=== PATIENT | female | born 1945 | race Caucasian/White ===

== ENCOUNTER 2016-10-09 14:40 | Emergency (ER) | payer OTHER ==
[~2016-10-09] VITALS: Ht 157.5 cm; Wt 84.9 kg
[~2016-10-09 14:40] MED LIST: BACLOFEN10 MG PO; DYAZIDE, MA1 CAPSULE PO; GABAPENTIN100 MG PO; LORTAB 5-325 M1 EACH PO; METAXALONE800 MG PO; METFORMIN HCL1000 MG PO; MOTRIN600 MG PO; PRAVASTATIN SOD40 MG PO; TRIAMTERENE-HC1 EACH PO
[2016-10-09 16:00] LABS: HEMATOCRIT 38.6 % (36.0-46.0); MCH 27.8 PG (29.0-34.0); MCHC 32.6 G/DL (30.0-36.0); MCV 85.2 FL (83-99); MEAN PLAT.VOLUME 8.9 uM^3 (9.5-12.4); PLATELET COUNT 258 K/uL (156-360); RBC DIS.WIDTH-SD 39.9 % (39-53); RED BLOOD COUNT 4.53 M/uL (3.80-5.20); WHITE BLOOD COUNT 7.6 K/uL (4.1-10.2)
[2016-10-09 16:13] LABS: CHLORIDE 108 mEq/L (99-109); POTASSIUM 3.5 mEq/L (3.7-5.4); SODIUM 141 mEq/L (136-147)
[2016-10-09 16:14] LABS: MAGNESIUM 1.9 mg/dL (1.3-2.7)
[2016-10-09 16:15] LABS: GLUCOSE 141 mg/dL (70-99)
[2016-10-09 16:16] LABS: ANION GAP 11 MEQ/L (2-14)
[2016-10-09 16:19] LABS: GFR ESTIMATE (CALCULATED) > 59 mL/min/; UREA NITROGEN (BUN) 13 mg/dL (9-23)
[2016-10-09 16:35] LABS: TROP-I INTERPRETATION NEGATIVE; TROPONIN-I < 0.01 ng/mL (0.0-0.30)
[2016-10-09 19:04] VITALS: BP 143/69
== END 2016-10-09 19:04 | disposition home or self-care (01) ==
LOC: EME 14:40
DX: E87.6 Hypokalemia (principal); R19.7 Diarrhea, unspecified; I10 Essential (primary) hypertension; E78.5 Hyperlipidemia, unspecified; E11.9 Type 2 diabetes mellitus without complications
CPT/HCPCS: 71020; 74000; 80048; 83735; 84484; 85027; 87493; 93005; 99281; 99284